=== PATIENT | female | born 1945 | race Hispanic/Latino ===

== ENCOUNTER 2018-01-12 13:53 | Outpatient (CLI) | payer MEDICARE ==
--- NOTE | 2018-01-12 14:37 | XRay Report ---
XRAY RIGHT TIBIA AND FIBULA TWO VIEWS: 01/12/18 13:53:00 CLINICAL: Right leg pain. Pain in the mid shaft area. FINDINGS: Mild diffuse osteopenia. No fracture or dislocation. Osteoarthritis of the medial knee joint. The ankle joint is normal. Mild soft tissue swelling at the ankle.No soft tissue air or foreign body. IMPRESSION: Osteopenia and mild nonspecific soft tissue swelling. Osteoarthritis of the medial knee joint.
== END 2018-01-12 13:54 | disposition home or self-care (01) ==
LOC: SPVIMAG 13:53
PROVIDERS: ATTEND Internal Medicine Rheumatology
DX: M17.11 Unilateral primary osteoarthritis, right knee (principal)